=== PATIENT | male | born 1955 | race Caucasian/White ===

== ENCOUNTER 2018-05-18 12:27 | Emergency (ER) | payer MEDICARE ==
[~2018-05-18] VITALS: Ht 177.8 cm; Wt 101.3 kg
[~2018-05-18 12:27] MED LIST: AMLO-150 PO; BENZ1TAB61 PO; ESCI20TA10 PO; LAMO150T3 PO; LAMO25TA13 PO; LISI-167 PO; PARO40TA3 PO; PARO40TA61 PO; THIO10CA2 PO
[2018-05-18 13:17] VITALS: BP 170/98
== END 2018-05-18 14:17 | disposition home or self-care (01) ==
LOC: ED 14:07
DX: J00 Acute nasopharyngitis [common cold] (principal); J02.8 Acute pharyngitis due to other specified organisms; B97.89 Other viral agents as the cause of diseases classified elsewhere; I10 Essential (primary) hypertension
CPT/HCPCS: 71046; 82962; 99283

== ENCOUNTER 2018-06-05 16:37 | Emergency (ER) | payer MEDICARE ==
[~2018-06-05] VITALS: Ht 180.3 cm; Wt 97.2 kg
[2018-06-05 16:47] VITALS: BP 162/101
--- NOTE | 2018-06-05 17:07 | NUR ---
RAD to Xray pt not in lobby,
== END 2018-06-05 17:34 | disposition home or self-care (01) ==
LOC: ED 17:32
DX: J20.8 Acute bronchitis due to other specified organisms (principal); J45.909 Unspecified asthma, uncomplicated; I10 Essential (primary) hypertension; F20.9 Schizophrenia, unspecified; F32.9 Major depressive disorder, single episode, unspecified; Z72.9 Problem related to lifestyle, unspecified
CPT/HCPCS: 93005; 99283

== ENCOUNTER 2018-08-11 07:27 | Emergency (ER) | payer MEDICARE, MEDICAID ==
[~2018-08-11] VITALS: Ht 180.3 cm; Wt 104.0 kg
--- NOTE | 2018-08-11 07:34 | NUR ---
pt brought in from [facility]. [place] staff at bedside. pt fell while on the toilet this am and now has a 3 cm laceration above left eye. pt denies loc. 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
[2018-08-11 09:15] VITALS: BP 141/78
--- NOTE | 2018-08-11 10:00 | NUR ---
report given to dotty capellan at [facility].
== END 2018-08-11 11:38 | disposition home or self-care (01) ==
LOC: ED 10:12
DX: S01.81XA Laceration without foreign body of other part of head, initial encounter (principal); W19.XXXA Unspecified fall, initial encounter; Y93.89 Activity, other specified; Y92.098 Other place in other non-institutional residence as the place of occurrence of the external cause; Y99.8 Other external cause status
CPT/HCPCS: 12011; 99283

== ENCOUNTER 2018-08-16 10:32 | Inpatient (IN) | payer MEDICARE, MEDICAID ==
[~2018-08-16] VITALS: Ht 182.9 cm; Wt 106.0 kg
[2018-08-16] MEDS ORDERED: PIPERACILLIN/TAZO/PMX 3.375GM 50 ML IVPB ONE (11:00)
[2018-08-16] MEDS ORDERED: PLEASE ENTER HEIGHT AND WEIGHT MC SCH (11:00)
[2018-08-16] MEDS ORDERED: SODIUM CHLORIDE 0.9% 1,000ML IVBOLUS ONE (11:00)
[2018-08-16] MEDS ORDERED: ACETAMINOPHEN 650 MG SUPP PR ONE (11:00)
[2018-08-16] MEDS ORDERED: VANCOMYCIN PER PHARMACY MC ONE (11:00)
[2018-08-16 11:17] LABS: BASOPHILS # (AUTO) 0.05 x10^3/uL (0-0.1); BASOPHILS % (AUTO) 0 % (0-1); EOSINOPHILS % (AUTO) 0 % (1-7); LYMPHOCYTES % (AUTO) 13 % (22-44); MD NO; MEAN CORPUSCULAR HEMOGLOBIN 28.3 pg (27.5-34.5); MEAN CORPUSCULAR HGB CONC 32.6 g/dL (33.2-36.2); MEAN PLATELET VOLUME 7.9 fL (7.4-10.4); MONOCYTES # (AUTO) 0.73 x10^3/uL (0.2-0.8); MONOCYTES % (AUTO) 6 % (2-9); NEUTROPHILS # (AUTO) 10.68 x10^3/uL (1.8-6.8); NEUTROPHILS % (AUTO) 81 % (42-75); PLATELET COUNT 314 x10^3/uL (130-400); RED BLOOD COUNT 4.43 x10^6/uL (4.38-5.82); RED CELL DISTRIBUTION WIDTH 13.4 % (9.4-14.8)
[2018-08-16 11:26] LABS: INTERNATIONAL NORMALIZED RATIO 1.06 (0.93-1.1); PROTHROMBIN TIME 11.1 Seconds (9.6-11.5)
[2018-08-16 11:30] LABS: ALANINE AMINOTRANSFERASE 44 U/L (12-78); ALBUMIN 3.9 g/dL (3.4-5.0); ANION GAP 13 mmol/L (5-15); CALCIUM 8.9 mg/dL (8.5-10.1); CHLORIDE 108 mmol/L (98-107); CREATININE 1.42 mg/dL (0.7-1.3)
[2018-08-16 11:34] LABS: ALKALINE PHOSPHATASE 72 U/L (45-117); BILIRUBIN,TOTAL 0.8 mg/dL (0.2-1.0); TOTAL PROTEIN 7.4 g/dL (6.4-8.2); TROPONIN I < 0.015 ng/mL (0.000-0.045)
[2018-08-16] MEDS ORDERED: ACETAMINOPHEN 650 MG SUPP ONE (11:36)
[2018-08-16] MEDS ORDERED: PIPERACILLIN/TAZO/PMX 3.375GM 0 ML ONE (11:36)
[2018-08-16 11:55] LABS: MICROSCOPIC INDICATED
[2018-08-16] MEDS ORDERED: VANCOMYCIN 1,700 MG in SODIUM CHLORIDE 0.9% 250 ML IV ONE (12:00)
[2018-08-16 12:05] LABS: CULTURE INDICATED? NO
[2018-08-16] MEDS ORDERED: ZIPRASIDONE 20 MG INJ IM ONE ×2 (12:07→12:30)
--- NOTE | 2018-08-16 12:27 | NUR ---
Pt transported to imaging on [facility].
--- NOTE | 2018-08-16 12:44 | NUR ---
Pt back to room from CT.
--- NOTE | 2018-08-16 13:14 | NUR ---
Pt resting on [facility] connected to all monitors and on 2 L of oxygen via NC due to SPO2% dropping to 85% when pt asleep. Pt remains between 90-92% on 2 L of oxygen. PIV medicaitons infusing per EMAR. Pt sleeping on [place]. [place] sitter at bedside with pt. KARLA. No needs expressed at this time. Call light within reach.
[2018-08-16] MEDS ORDERED: LORazepam 2 MG/ML, 1ML IVPush PRN (13:30)
[2018-08-16] MEDS ORDERED: LEVETIRACETAM 500 MG in SODIUM CHLORIDE 0.9% 100 ML IV ONE (13:30)
--- NOTE | 2018-08-16 13:46 | NUR ---
SBAR REPORT FROM TALON ELDRIDGE.
--- NOTE | 2018-08-16 13:50 | NUR ---
PT MOVED TO TRAUMA 03 FOR CLOSER MONITORING. PT RESTING ON GURNEY. AROUSABLE TO VOICE. CP MONITORS IN PLACE. PER DR MORENO, CAPRI ABX.
[2018-08-16 13:52] LABS: RAPID INFLUENZA A Negative (Negative); RAPID INFLUENZA B Negative (Negative)
--- NOTE | 2018-08-16 14:21 | NUR ---
THROUGHPUT RN: Order clarification with Dr. Bass: patient to be admitted to medical telemetry not medical unit, verbal clarification read back and verified. Patient to be admitted to medical telemetry.
--- NOTE | 2018-08-16 14:21 | NUR ---
LATE NOTE ENTRY FOR 1115: Pt brought in by EMS with c/o altered mental status from [place]. Pt had fall with head injury one week ago and was medically cleared to return to [place]. Per [place] sister with pt, Pt has had altered mental status that has increased for one week.
[2018-08-16] MEDS ORDERED: TRAZ-137 PO (14:22)
[2018-08-16] MEDS ORDERED: LAMO100T5 PO (14:22)
[2018-08-16] MEDS ORDERED: FLUT9.9S NAS (14:22)
[2018-08-16] MEDS ORDERED: BENZ2AMP4 PO (14:22)
[2018-08-16] MEDS ORDERED: PARO20TA98 PO (14:27)
[2018-08-16] MEDS ORDERED: FISH OIL ×2 (14:30)
[2018-08-16] MEDS ORDERED: DIPH25CA61 PO (14:30)
[2018-08-16] MEDS ORDERED: HYDR25TA6 PO (14:30)
--- NOTE | 2018-08-16 14:30 | NUR ---
SBAR REPORT TO CHENTE CONNELL, OVER PHONE
[2018-08-16 19:42] VITALS: BP 122/76
[2018-08-16] MEDS: ACETAMINOPHEN 325 MG TABLET PO PRN (21:04)
[2018-08-16] MEDS: SODIUM CHLORIDE FLUSH 10ML SYR IVF SCH (21:06)
[2018-08-17 00:35] VITALS: BP 145/61
[2018-08-17] MEDS: ACETAMINOPHEN 325 MG TABLET PO PRN ×2 (03:41→20:30)
[2018-08-17 04:00] VITALS: BP 146/72
[2018-08-17 05:08] LABS: MEAN CORPUSCULAR HEMOGLOBIN 29.1 pg (27.5-34.5); MEAN CORPUSCULAR HGB CONC 33.1 g/dL (33.2-36.2); MEAN PLATELET VOLUME 7.4 fL (7.4-10.4); PLATELET COUNT 279 x10^3/uL (130-400); RED BLOOD COUNT 4.06 x10^6/uL (4.38-5.82); RED CELL DISTRIBUTION WIDTH 13.2 % (9.4-14.8)
[2018-08-17 05:20] LABS: ANION GAP 7 mmol/L (5-15); CALCIUM 8.7 mg/dL (8.5-10.1); CHLORIDE 113 mmol/L (98-107); CREATININE 1.15 mg/dL (0.7-1.3)
[2018-08-17 06:02] LABS: BASOPHILS # (AUTO) 0.05 x10^3/uL (0-0.1); BASOPHILS % (AUTO) 0 % (0-1); EOSINOPHILS # (AUTO) 0.09 x10^3/uL (0-0.4); EOSINOPHILS % (AUTO) 1 % (1-7); LYMPHOCYTES # (AUTO) 2.07 x10^3/uL (1-3.4); LYMPHOCYTES % (AUTO) 16 % (22-44); MD SCAN; MONOCYTES # (AUTO) 0.91 x10^3/uL (0.2-0.8); MONOCYTES % (AUTO) 7 % (2-9); NEUTROPHILS # (AUTO) 10.27 x10^3/uL (1.8-6.8); NEUTROPHILS % (AUTO) 77 % (42-75)
[2018-08-17] MEDS: D5%-0.45% NACL 500 ML IV SCH ×2 (07:00→17:00)
[2018-08-17 08:09] VITALS: BP 144/82
[2018-08-17] MEDS ORDERED: LORazepam 2 MG/ML, 1ML IVPush ONE (09:00)
[2018-08-17] MEDS: SODIUM CHLORIDE FLUSH 10ML SYR IVF SCH ×2 (09:58→20:48)
[2018-08-17 14:00] VITALS: BP 92/59
[2018-08-17] MEDS ORDERED: GADOBUTROL 10 MMOL/10 ML PFS ONE (14:48)
[2018-08-17 19:56] VITALS: BP 121/68
[2018-08-18] VITALS (7 sets, daily range): BP systolic 126–156; BP diastolic 73–87
[2018-08-18] MEDS: D5%-0.45% NACL 500 ML IV SCH ×3 (03:00→22:59)
[2018-08-18] MEDS: SODIUM CHLORIDE FLUSH 10ML SYR IVF SCH ×2 (09:00→20:05)
[2018-08-18] MEDS: ACETAMINOPHEN 325 MG TABLET PO PRN (20:04)
[2018-08-19 00:05] VITALS: BP 156/71
[2018-08-19 04:02] VITALS: BP 145/84
[2018-08-19] MEDS ORDERED: D5%-0.45% NACL 1,000 ML IV SCH (05:30)
[2018-08-19 06:18] LABS: BASOPHILS # (AUTO) 0.05 x10^3/uL (0-0.1); BASOPHILS % (AUTO) 0 % (0-1); EOSINOPHILS # (AUTO) 0.53 x10^3/uL (0-0.4); EOSINOPHILS % (AUTO) 5 % (1-7); LYMPHOCYTES # (AUTO) 3.77 x10^3/uL (1-3.4); LYMPHOCYTES % (AUTO) 34 % (22-44); MD NO; MEAN CORPUSCULAR HEMOGLOBIN 28.9 pg (27.5-34.5); MEAN CORPUSCULAR HGB CONC 32.8 g/dL (33.2-36.2); MONOCYTES # (AUTO) 0.68 x10^3/uL (0.2-0.8); MONOCYTES % (AUTO) 6 % (2-9); NEUTROPHILS # (AUTO) 6.13 x10^3/uL (1.8-6.8); NEUTROPHILS % (AUTO) 55 % (42-75); PLATELET COUNT 304 x10^3/uL (130-400); RED BLOOD COUNT 4.39 x10^6/uL (4.38-5.82); RED CELL DISTRIBUTION WIDTH 13.5 % (9.4-14.8)
[2018-08-19 06:30] LABS: CALCIUM 8.8 mg/dL (8.5-10.1); CHLORIDE 107 mmol/L (98-107)
[2018-08-19 06:33] LABS: ALBUMIN 3.5 g/dL (3.4-5.0); ANION GAP 6 mmol/L (5-15); CREATININE 0.79 mg/dL (0.7-1.3)
[2018-08-19] MEDS ORDERED: POTASSIUM CHLORIDE 20 MEQ TAB.ER.PRT PO ONE (07:00)
[2018-08-19] MEDS: SODIUM CHLORIDE FLUSH 10ML SYR IVF SCH (08:06)
[2018-08-19 08:37] VITALS: BP 188/65
[2018-08-19 14:00] VITALS: BP 152/85
[2018-08-19] MEDS: ACETAMINOPHEN 325 MG TABLET PO PRN (16:13)
== END 2018-08-19 17:51 | disposition home or self-care (01) | DRG 70 ==
LOC: ED 10:50 → EDIP 13:29 → 4WST 15:18
PROVIDERS: ADMIT Hospitalist; ATTEND Hospitalist
PROC: 0T9B70Z Drainage of Bladder with Drainage Device, Via Natural or Artificial Opening (ICD-10-PCS; principal; 2018-08-16)
DX: G93.41 Metabolic encephalopathy (principal); I61.0 Nontraumatic intracerebral hemorrhage in hemisphere, subcortical; E87.0 Hyperosmolality and hypernatremia; F25.9 Schizoaffective disorder, unspecified; T50.995A Adverse effect of other drugs, medicaments and biological substances, initial encounter; Y92.89 Other specified places as the place of occurrence of the external cause; E87.6 Hypokalemia; F17.200 Nicotine dependence, unspecified, uncomplicated; I10 Essential (primary) hypertension; J45.909 Unspecified asthma, uncomplicated; S01.81XA Laceration without foreign body of other part of head, initial encounter; W19.XXXA Unspecified fall, initial encounter; Y93.89 Activity, other specified; Y99.8 Other external cause status; D72.829 Elevated white blood cell count, unspecified; Z88.8 Allergy status to other drugs, medicaments and biological substances
CPT/HCPCS: 36415; 70450; 70544; 70553; 71045; 80048; 80053; 80069; 81001; 82140; 82962; 83605; 84145; 84443; 84484; 85025; 85610; 87040; 87400; 93005; 95819; 96361; 96372; 96374; 99285; A9585; G0378; J1953; J3370; J3486; 92523-GN; J2060; J7030; J7050

== ENCOUNTER 2018-08-19 23:49 | Emergency (ER) | payer MEDICARE, MEDICAID ==
[~2018-08-19 23:49] MED LIST changes: +BENZ2AMP4 PO; +DIPH25CA61 PO; +FISH OIL; +FLUT9.9S NAS; +HYDR25TA6 PO; +LAMO100T5 PO; +PARO20TA98 PO; +TRAZ-137 PO
--- NOTE | 2018-08-19 23:53 | NUR ---
PT. NOT IN LOBBY WHEN CALLED FOR TRIAGE.
== END 2018-08-20 00:37 | disposition left against medical advice (07) ==
LOC: ED 08-20 00:16
DX: Z53.21 Procedure and treatment not carried out due to patient leaving prior to being seen by health care provider (principal)

== ENCOUNTER 2018-08-21 06:08 | Emergency (ER) | payer MEDICARE, MEDICAID ==
[~2018-08-21] VITALS: Ht 182.9 cm; Wt 109.1 kg
[2018-08-21 06:21] VITALS: BP 150/100
--- NOTE | 2018-08-21 06:36 | NUR ---
PT. PROVIDED WITH WARM BLANKTS. PT. TO CT VIA VADIM.
--- NOTE | 2018-08-21 06:49 | NUR ---
PT BACK FROM IMAGING.
--- NOTE | 2018-08-21 06:58 | NUR ---
RECEIVED BEDSIDE REPORT FROM CHENTE HAILE. PT RESTING ON [facility] [place]. PT GIVEN A URINAL.
--- NOTE | 2018-08-21 08:34 | NUR ---
Patient/Caregiver given discharge instructions and they have confirmed that they understand the instructions. Patient ambulatory with steady gait. PT LEFT WITH ALL PERSONAL BELONGINGS.
== END 2018-08-21 08:37 | disposition home or self-care (01) ==
LOC: ED 06:48
DX: F20.1 Disorganized schizophrenia (principal); F32.9 Major depressive disorder, single episode, unspecified; F29 Unspecified psychosis not due to a substance or known physiological condition; I10 Essential (primary) hypertension; J45.909 Unspecified asthma, uncomplicated; Z72.9 Problem related to lifestyle, unspecified; Z63.8 Other specified problems related to primary support group; Z87.01 Personal history of pneumonia (recurrent)
CPT/HCPCS: 70450; 99284

== ENCOUNTER 2018-08-21 10:43 | Emergency (ER) | payer MEDICARE, MEDICAID ==
[2018-08-21 10:56] VITALS: BP 138/80
[2018-08-21] MEDS ORDERED: hydrOXYzine 25 MG/ML IM PRN (11:00)
--- NOTE | 2018-08-21 11:17 | NUR ---
63 Y/O MALE BIB AMBULANCE WITH C/O "I NEED A SHOT IN MY ASS." PT WAS HERE AND DISCHARGED EARLIER TODAY. NO C/O PAIN AT THIS TIME. PT ALSO STATES "I'M REALLY TIRED. I'VE BEEN UP FOR A DAY." NO ACUTE DISTRESS NOTED. REFUSING ASSESSMENT AT THIS TIME. PT POSITIONING HIMSELF TO SLEEP ON GURNEY. WILL CONTINUE TO MONITOR. PT PLACED ON CONT PULSE OX, NIBP. PER REPORT, PT WAS SLEEPING ON THE SIDEWALK WHEN THEY ARRIVED. PT DENIED FALL.
[2018-08-21] MEDS ORDERED: KETOROLAC 30 MG/1 ML IM ONE (12:00)
[2018-08-21] MEDS ORDERED: ACETAMINOPHEN 325 MG TABLET PO ONE (12:00)
--- NOTE | 2018-08-21 12:59 | NUR ---
LATE ENTRY FOR 1145: PT SLEEPING ON GURNEY. NO ACUTE DISTRESS NOTED. WILL CONTINUE TO MONITOR
--- NOTE | 2018-08-21 13:02 | NUR ---
BEDSIDE REPORT TO CHENTE PATEL.
--- NOTE | 2018-08-21 13:02 | NUR ---
PT POURING CUP OF WATER ON HIS HEAD ON THE GURNEY. PT EDUCATED NOT TO DO THAT.
--- NOTE | 2018-08-21 13:27 | NUR ---
Patient/Caregiver given discharge instructions and they have confirmed that they understand the instructions. Patient ambulatory with steady gait.
== END 2018-08-21 13:28 | disposition home or self-care (01) ==
LOC: ED 11:31
DX: F20.9 Schizophrenia, unspecified (principal); F10.129 Alcohol abuse with intoxication, unspecified; I10 Essential (primary) hypertension; J45.909 Unspecified asthma, uncomplicated; Z87.01 Personal history of pneumonia (recurrent); Y90.9 Presence of alcohol in blood, level not specified
CPT/HCPCS: 99283